=== PATIENT | male | born 1965 | race Caucasian/White ===

== ENCOUNTER → 2024-07-08 07:21 | Outpatient (REF) | payer BC, SELFPAY | LOC: HWRAD 07:21 | PROVIDERS: ATTENDING PHYSICIAN Family Medicine | DX: Z87.891 Personal history of nicotine dependence (principal) | CPT/HCPCS: 71271 ==

== ENCOUNTER → 2025-08-26 13:03 | Outpatient (REF) | payer BC, SELFPAY | LOC: RAD 13:03 | PROVIDERS: ATTENDING PHYSICIAN Family Medicine | DX: Z87.891 Personal history of nicotine dependence (principal) | CPT/HCPCS: 71271 ==